=== PATIENT | female | born 1950 | race Caucasian/White ===

== ENCOUNTER 2022-09-15 16:40 | Inpatient (IN) | payer BC ==
[~2022-09-15] VITALS: Ht 157.5 cm; Wt 71.8 kg
[2022-09-15 16:40] VITALS: BP_SYST 124; PULSE 93; RESP 18; TEMP 98.8; O2SAT 97
[2022-09-15] MEDS ORDERED: NITROGLYCERIN 1 INCH (GM) OINT. TP ONE (17:30)
[2022-09-15] MEDS ORDERED: ASPIRIN 81 MG TAB.CHEW PO ONE (17:30)
[2022-09-15 17:58] LABS: BASOPHILS # (AUTO) 0.1 K/uL (0.0-0.2); BASOPHILS % (AUTO) 0.7 % (0.0-2.0); EOSINOPHILS # (AUTO) 0.2 K/uL (0.0-0.4); EOSINOPHILS % (AUTO) 2.4 % (0.0-4.0); HEMATOCRIT 41.2 % (36-48); HEMOGLOBIN 13.7 g/dL (12.0-16.0); LYMPHOCYTES # (AUTO) 1.7 K/uL (1.0-5.5); LYMPHOCYTES % (AUTO) 20.9 % (20.5-51.5); MEAN CORPUSCULAR HEMOGLOBIN 30 pg (27-31); MEAN CORPUSCULAR HGB CONC 33 % (32-36); MEAN CORPUSCULAR VOLUME 89 fL (79.0-98.0); MONOCYTES # (AUTO) 1.1 K/uL (0.0-1.0); MONOCYTES % (AUTO) 13.2 % (1.7-9.3); NEUTROPHILS # (AUTO) 5.1 K/uL (1.8-7.7); NEUTROPHILS % (AUTO) 62.8 % (40.0-70.0); PLATELET COUNT (AUTO) 256 K/uL (130-430); RED BLOOD CELL COUNT(AUTO) 4.64 MIL/uL (4.2-6.2); RED CELL DISTRIBUTION WIDTH 13.8 % (9.0-15.0); WHITE BLOOD COUNT (AUTO) 8.2 K/uL (4.8-10.8)
[2022-09-15 18:08] LABS: ANION GAP 6 (5-15); CARBON DIOXIDE 30 mmol/L (23-29); CHLORIDE 95 mmol/L (98-107); CREATININE 1.12 mg/dL (0.55-1.30); GLUCOSE 100 mg/dL (74-106); POTASSIUM 3.4 mmol/L (3.5-5.1); SODIUM SERUM 131 mmol/L (136-145); UREA NITROGEN, BLOOD 19 mg/dL (8-21)
[2022-09-15 18:16] LABS: ALANINE AMINOTRANSFERASE 20 U/L (12-78); ALBUMIN 3.8 g/dL (3.4-4.8); ASPARTATE AMINOTRANSFERASE 23 U/L (10-37); TOTAL BILIRUBIN 0.4 mg/dL (0.0-1.0)
[2022-09-15] MEDS ORDERED: POTASSIUM CHLORIDE 20 MEQ/PKT PACKET PO ONE (19:30)
[2022-09-15] MEDS ORDERED: CARV6.2554 PO (19:31)
[2022-09-15] MEDS ORDERED: magnesium (19:31)
[2022-09-15] MEDS ORDERED: UBID50TA3 PO (19:31)
[2022-09-15] MEDS ORDERED: HYDR-4037 PO (19:31)
[2022-09-15] MEDS ORDERED: BIOTIN (19:31)
[2022-09-15] MEDS ORDERED: POTA-197 PO (19:31)
[2022-09-15] MEDS ORDERED: COLLAGEN (19:31)
[2022-09-15] MEDS ORDERED: b12 (19:31)
[2022-09-15] MEDS ORDERED: HYDR25TA4 PO (19:31)
[2022-09-15] MEDS ORDERED: potassium (19:32)
[2022-09-15 21:30] VITALS: BP_SYST 110; PULSE 61; RESP 17; TEMP 97.7
[2022-09-16] VITALS: BP_SYST 118; PULSE 65; RESP 17; TEMP 97.8; O2SAT 95
[2022-09-16 08:00] VITALS: O2SAT 98
[2022-09-16 08:52] VITALS: BP_SYST 111; PULSE 62; RESP 16; TEMP 98; O2SAT 98
[2022-09-16] MEDS ORDERED: LORazepam 2 MG/ML VIAL IVP PRN (11:00)
[2022-09-16] MEDS ORDERED: ONDANSETRON HCL 4 MG/2 ML VIAL IVP PRN (11:00)
[2022-09-16] MEDS ORDERED: ACETAMINOPHEN 325 MG TABLET PO PRN ×2 (11:00→11:30)
[2022-09-16] MEDS ORDERED: NALOXONE HCL 0.4 MG/ML AMP (NARCAN) IVP PRN ×2 (11:00)
[2022-09-16] MEDS ORDERED: HYDROcodone/ACETAMIN 10-325 MG TAB PO PRN (11:00)
[2022-09-16] MEDS ORDERED: HYDROcodone/ACETAMIN 5-325 MG TAB (NORCO/ VICODIN) PO PRN (11:00)
[2022-09-16] MEDS ORDERED: HYDROCHLOROTHIAZIDE 25 MG TABLET (HCTZ) PO ONE (11:30)
[2022-09-16] MEDS: hydrALAZINE HCL 10 MG TABLET PO SCH ×2 (13:39→21:33)
[2022-09-16] MEDS: NORMAL SALINE 5 ML DISP.SYRIN IVF SCH ×2 (13:51→21:32)
[2022-09-16 16:00] VITALS: BP_SYST 123; PULSE 61; RESP 16; TEMP 98.7; O2SAT 96
[2022-09-16 19:00] VITALS: BP_SYST 128; PULSE 66; RESP 16; TEMP 98.4; O2SAT 98
[2022-09-16 20:00] VITALS: BP_SYST 128; PULSE 66; RESP 16; TEMP 98.4; O2SAT 98
[2022-09-16] MEDS: CARVEDILOL 6.25 MG TABLET (COREG) PO SCH (21:32)
[2022-09-17] VITALS (7 sets, daily range): BP systolic 120–134; PULSE 58–70; RESP 16–20; TEMP 97.4–98.2; O2SAT 94–98
[2022-09-17] MEDS: NORMAL SALINE 5 ML DISP.SYRIN IVF SCH ×2 (05:30→13:26)
[2022-09-17 07:03] LABS: BASOPHILS % (AUTO) 0.6 % (0.0-2.0); EOSINOPHILS # (AUTO) 0.2 K/uL (0.0-0.4); EOSINOPHILS % (AUTO) 2.4 % (0.0-4.0); HEMATOCRIT 40.6 % (36-48); HEMOGLOBIN 13.4 g/dL (12.0-16.0); LYMPHOCYTES # (AUTO) 1.8 K/uL (1.0-5.5); LYMPHOCYTES % (AUTO) 22.6 % (20.5-51.5); MEAN CORPUSCULAR HEMOGLOBIN 29 pg (27-31); MEAN CORPUSCULAR HGB CONC 33 % (32-36); MEAN CORPUSCULAR VOLUME 89 fL (79.0-98.0); MONOCYTES # (AUTO) 0.9 K/uL (0.0-1.0); MONOCYTES % (AUTO) 12.2 % (1.7-9.3); NEUTROPHILS # (AUTO) 4.8 K/uL (1.8-7.7); NEUTROPHILS % (AUTO) 62.2 % (40.0-70.0); PLATELET COUNT (AUTO) 236 K/uL (130-430); RED BLOOD CELL COUNT(AUTO) 4.58 MIL/uL (4.2-6.2); RED CELL DISTRIBUTION WIDTH 13.8 % (9.0-15.0); WHITE BLOOD COUNT (AUTO) 7.8 K/uL (4.8-10.8)
[2022-09-17 07:25] LABS: ANION GAP 8 (5-15); CALCIUM 8.9 mg/dL (8.4-11.0); CARBON DIOXIDE 28 mmol/L (23-29); CHLORIDE 94 mmol/L (98-107); CREATININE 1.02 mg/dL (0.55-1.30); GLUCOSE 91 mg/dL (74-106); PHOSPHORUS 3.9 mg/dL (2.7-4.5); POTASSIUM 3.5 mmol/L (3.5-5.1); SODIUM SERUM 130 mmol/L (136-145); UREA NITROGEN, BLOOD 16 mg/dL (8-21)
[2022-09-17] MEDS: CARVEDILOL 6.25 MG TABLET (COREG) PO SCH (09:00)
[2022-09-17] MEDS ORDERED: HYDROCHLOROTHIAZIDE 25 MG TABLET (HCTZ) PO SCH (09:00)
[2022-09-17] MEDS: hydrALAZINE HCL 10 MG TABLET PO SCH (13:18)
== END 2022-09-17 18:25 | disposition home or self-care (01) | DRG 313 ==
LOC: SED 16:40 → STU 20:05
PROVIDERS: ADMIT Preventive Medicine Preventive Medicine/Occupational Environmental Medicine; ATTEND Preventive Medicine Preventive Medicine/Occupational Environmental Medicine
DX: R07.89 Other chest pain (principal); E87.1 Hypo-osmolality and hyponatremia; I10 Essential (primary) hypertension; E87.6 Hypokalemia; Z96.611 Presence of right artificial shoulder joint; Z85.528 Personal history of other malignant neoplasm of kidney; Z90.49 Acquired absence of other specified parts of digestive tract; Z90.5 Acquired absence of kidney
CPT/HCPCS: 36415; 71045; 80048; 80053; 83735; 83880; 84100; 84484; 85025; 93005; 93306; 99285; G0378

== ENCOUNTER 2022-12-06 18:15 | Emergency (ER) | payer BC ==
[~2022-12-06] VITALS: Ht 167.6 cm; Wt 65.8 kg
[~2022-12-06 18:15] MED LIST: BIOTIN; CARV6.2554 PO; COLLAGEN; HYDR-4037 PO; HYDR25TA4 PO; UBID50TA3 PO; b12; magnesium; potassium
[2022-12-06 18:36] VITALS: BP_SYST 142; PULSE 79; RESP 20; TEMP 99; O2SAT 99
[2022-12-06] MEDS ORDERED: PROCHLORPERAZINE EDISYLATE 10 MG/2 ML VIAL IVP ONE (20:15)
[2022-12-06] MEDS ORDERED: DIPHENHYDRAMINE INJ 50 MG/ML VIAL IVP ONE (20:15)
[2022-12-06 20:59] LABS: ANION GAP 7 (5-15); BASOPHILS % (AUTO) 0.6 % (0.0-2.0); CALCIUM 9.3 mg/dL (8.4-11.0); CARBON DIOXIDE 30 mmol/L (23-29); CHLORIDE 93 mmol/L (98-107); CREATININE 1.07 mg/dL (0.55-1.30); EOSINOPHILS # (AUTO) 0.2 K/uL (0.0-0.4); EOSINOPHILS % (AUTO) 2.6 % (0.0-4.0); GLUCOSE 93 mg/dL (74-106); HEMATOCRIT 39.3 % (36-48); HEMOGLOBIN 13.3 g/dL (12.0-16.0); LYMPHOCYTES # (AUTO) 1.8 K/uL (1.0-5.5); LYMPHOCYTES % (AUTO) 26.9 % (20.5-51.5); MEAN CORPUSCULAR HEMOGLOBIN 30 pg (27-31); MEAN CORPUSCULAR HGB CONC 34 % (32-36); MEAN CORPUSCULAR VOLUME 87 fL (79.0-98.0); MONOCYTES # (AUTO) 0.8 K/uL (0.0-1.0); MONOCYTES % (AUTO) 11.8 % (1.7-9.3); NEUTROPHILS # (AUTO) 3.9 K/uL (1.8-7.7); NEUTROPHILS % (AUTO) 58.1 % (40.0-70.0); PLATELET COUNT (AUTO) 244 K/uL (130-430); POTASSIUM 3.9 mmol/L (3.5-5.1); RED BLOOD CELL COUNT(AUTO) 4.53 MIL/uL (4.2-6.2); RED CELL DISTRIBUTION WIDTH 14.2 % (9.0-15.0); SODIUM SERUM 130 mmol/L (136-145); UREA NITROGEN, BLOOD 20 mg/dL (8-21); WHITE BLOOD COUNT (AUTO) 6.7 K/uL (4.8-10.8)
[2022-12-06 21:07] LABS: ALANINE AMINOTRANSFERASE 33 U/L (12-78); ALBUMIN 3.6 g/dL (3.4-4.8); ASPARTATE AMINOTRANSFERASE 24 U/L (10-37); TOTAL BILIRUBIN 0.4 mg/dL (0.0-1.0); TOTAL PROTEIN, SERUM 7.9 g/dL (6.4-8.3)
[2022-12-06] MEDS ORDERED: ACET-2634 PO (22:06)
[2022-12-06] MEDS ORDERED: IBUP-1970 PO (22:06)
[2022-12-06 22:58] VITALS: BP_SYST 143; PULSE 79; RESP 18; TEMP 98.7; O2SAT 98
== END 2022-12-06 22:58 | disposition home or self-care (01) ==
LOC: SED 18:15
DX: R42 Dizziness and giddiness (principal); R51.9 Headache, unspecified; R11.0 Nausea; I10 Essential (primary) hypertension; Z85.528 Personal history of other malignant neoplasm of kidney; Z88.0 Allergy status to penicillin; Z79.899 Other long term (current) drug therapy
CPT/HCPCS: 99285; 70496; 96374; 71045; 96375; 80053; 85025; 84484; 36415; 93005; 70498; 70450; 76376; J1200; J0780; Q9967

== ENCOUNTER 2023-01-02 16:21 | Emergency (ER) | payer BC ==
[~2023-01-02] VITALS: Ht 157.5 cm; Wt 71.7 kg
[~2023-01-02 16:21] MED LIST changes: +ACET-2634 PO; +IBUP-1970 PO
[2023-01-02 16:26] VITALS: BP_SYST 124; PULSE 69; RESP 16; TEMP 97.7; O2SAT 98
[2023-01-02] MEDS ORDERED: NACL 0.9% 1,000 ML IV ONE (17:00)
[2023-01-02] MEDS ORDERED: ONDANSETRON HCL 4 MG/2 ML VIAL IVP ONE (17:00)
[2023-01-02 17:28] LABS: BILIRUBIN,URINE NEGATIVE (NEGATIVE); BLOOD, URINE NEGATIVE (NEGATIVE); CLARITY/URINE CLEAR (CLEAR); COLOR,URINE YELLOW (YELLOW); GLUCOSE,URINE NEGATIVE (NEGATIVE); KETONES,URINE NEGATIVE (NEGATIVE); LEUKOCYTE ESTERASE ,URINE NEGATIVE (NEGATIVE); NITRITE, URINE NEGATIVE (NEGATIVE); PH,URINE 6.5 (5.0-8.0); PROTEIN URINE NEGATIVE (NEGATIVE); UROBILINOGEN,URINE 0.2 (0.2-1.0)
[2023-01-02 17:29] LABS: BASOPHILS % (AUTO) 0.7 % (0.0-2.0); EOSINOPHILS # (AUTO) 0.1 K/uL (0.0-0.4); EOSINOPHILS % (AUTO) 2.6 % (0.0-4.0); HEMATOCRIT 38.9 % (36-48); LYMPHOCYTES # (AUTO) 1.6 K/uL (1.0-5.5); LYMPHOCYTES % (AUTO) 28.8 % (20.5-51.5); MEAN CORPUSCULAR HEMOGLOBIN 29 pg (27-31); MEAN CORPUSCULAR HGB CONC 33 % (32-36); MEAN CORPUSCULAR VOLUME 88 fL (79.0-98.0); MONOCYTES # (AUTO) 0.7 K/uL (0.0-1.0); MONOCYTES % (AUTO) 13.5 % (1.7-9.3); NEUTROPHILS # (AUTO) 2.9 K/uL (1.8-7.7); NEUTROPHILS % (AUTO) 54.4 % (40.0-70.0); PLATELET COUNT (AUTO) 234 K/uL (130-430); RED BLOOD CELL COUNT(AUTO) 4.44 MIL/uL (4.2-6.2); RED CELL DISTRIBUTION WIDTH 14.1 % (9.0-15.0); WHITE BLOOD COUNT (AUTO) 5.4 K/uL (4.8-10.8)
[2023-01-02 17:37] LABS: ANION GAP 7 (5-15); CALCIUM 9.7 mg/dL (8.4-11.0); CARBON DIOXIDE 30 mmol/L (23-29); CHLORIDE 95 mmol/L (98-107); CREATININE 1.05 mg/dL (0.55-1.30); GLUCOSE 106 mg/dL (74-106); POTASSIUM 3.4 mmol/L (3.5-5.1); SODIUM SERUM 132 mmol/L (136-145); UREA NITROGEN, BLOOD 16 mg/dL (8-21)
[2023-01-02 17:41] LABS: ALANINE AMINOTRANSFERASE 25 U/L (12-78); ALBUMIN 3.6 g/dL (3.4-4.8); ASPARTATE AMINOTRANSFERASE 24 U/L (10-37); LIPASE 81 U/L (16-77); TOTAL BILIRUBIN 0.4 mg/dL (0.0-1.0); TOTAL PROTEIN, SERUM 7.9 g/dL (6.4-8.3)
[2023-01-02 18:46] VITALS: BP_SYST 118; PULSE 65; RESP 17; TEMP 98.1; O2SAT 99
== END 2023-01-02 18:46 | disposition home or self-care (01) ==
LOC: SED 16:21
DX: R10.31 Right lower quadrant pain (principal); R11.0 Nausea; Z88.0 Allergy status to penicillin; I10 Essential (primary) hypertension; Z85.528 Personal history of other malignant neoplasm of kidney; Z79.899 Other long term (current) drug therapy
CPT/HCPCS: 99285; 74176; 96374; 96361; 80053; 81001; 83690; 85025; 84484; 36415; 93005; 76376; 81003; J2405; J7030